=== PATIENT | female | born 2000 | race Caucasian/White ===

== ENCOUNTER 2019-05-07 00:24 | Emergency (ER) | payer OTHER ==
[~2019-05-07] VITALS: Ht 165.1 cm; Wt 108.9 kg
[2019-05-07 01:21] VITALS: Ht 165.1 cm; Wt 108.9 kg
[2019-05-07 02:52] VITALS: BP 137/86
== END 2019-05-07 02:52 | disposition home or self-care (01) ==
LOC: EDBD 00:24 → ED 00:24
DX: S43.102A Unspecified dislocation of left acromioclavicular joint, initial encounter (principal); S40.212A Abrasion of left shoulder, initial encounter; Z88.1 Allergy status to other antibiotic agents; V43.52XA Car driver injured in collision with other type car in traffic accident, initial encounter; Y93.I9 Activity, other involving external motion; Y92.413 State road as the place of occurrence of the external cause; Y99.8 Other external cause status
CPT/HCPCS: J1885